=== PATIENT | male | born 1965 | race African-American/Black ===

== ENCOUNTER → 2017-06-13 | Outpatient (CLI) | payer OTHER ==
[~2017-06-13] MED LIST: AMITRYPTYLINE PO; ASPIRIN EC81 M1 PO; C-10001000 M1 PO; CETIRIZINE HCL10 MG PO; CLARITIN10 M3 PO; CYCLOBENZAPRINE5 MG PO; DESYREL50 M1 PO; GABAPENTIN300 M2 PO; GINSENG100 M1 PO; HYDROCHLOROTHIA25 MG PO; HYDROCODON-ACE1 EAC5 PO; KEPPRA500 MG PO; LISINOPRIL10 MG PO; METFORMIN PO; METOPROLOL TAR25 MG PO; NORVASC2.5 MG PO; OMEPRAZOLE20 M2 PO; PANTOPRAZOLE SO40 MG PO; PRAVASTATIN SOD20 MG PO; TERBINAFINE (L250 MG PO
--- NOTE | ~2017-06-13 | TH ---
Unit #: [id number] #: [id number] Patient: SARA JAIN [id number] [address] [address] [id number] O MR#: [id number] NAME: SARA JAIN. : 1965 SEX: M STUDY DATE/TIME: 06/13/2017 UNIT: [facility] ROOM: STUDY DESCRIPTION: Lexiscan stress test - Nuclear Attending Physician: Melvina Knox M.D. Referring Physician: Melvina Knox M.D. Primary Care Physician: Alex Persaud Jr., A.P.R.N. CARDIOLOGY REPORT PROCEDURE PERFORMED Lexiscan Cardiolite stress test - Nuclear portion. PROCEDURE Using technetium 99m-labeled Cardiolite, rest and stress SPECT images were obtained. Multiple SPECT images were obtained in various views, including horizontal and vertical long axis and short axis views of the left ventricle. Images were obtained by gated SPECT method. The patient was administered 10.26 mCi of Cardiolite at rest. The patient was administered 34.3 mCi of Cardiolite after Lexiscan infusion was completed. On the stress images, there is normal perfusion noted. The rest images show normal perfusion. Comparing the rest and stress images, there is no stress-induced ischemia noted. The left ventricular ejection fraction is calculated to be 44%. There is no focal wall motion abnormality seen. The left ventricular cavity is mildly dilated both at rest and post stress. CONCLUSION 1. No obvious stress-induced ischemia noted. 2. The left ventricular ejection fraction is calculated to be 44%. 3. There is mild global hypokinesis seen. 4. The left ventricular cavity is mildly dilated both at rest and post stress. 5. Suspicion for mild nonischemic dilated cardiomyopathy. Dictated by... Yenni Hall/harjeet TD: 06/13/2017 16:16 JOB #: [id number] Unit #: [id number] #: [id number] Patient: SARA JAIN CARDIOLOGY REPORT Page 1 of 1 X Melvina Knox MD <ELECTRONICALLY SIGNED> 07/31/17 1524 CARDIOLOGY REPORT
--- NOTE | ~2017-06-13 | ST ---
Unit #: [id number] #: [id number] Patient: SARA JAIN [id number] [place], [place] [address] [id number] O MR#: [id number] NAME: SARA JAIN. : 1965 SEX: M STUDY DATE/TIME: 06/13/2017 UNIT: [facility] ROOM: STUDY DESCRIPTION: Cardiac stress test. Attending Physician: Melvina Knox M.D. Referring Physician: Melvina Knox M.D. Primary Care Physician: Alex Persaud Jr., Kelly CARDIOLOGY REPORT EXAM Lexiscan Cardiolite stress test. PROCEDURE Baseline EKG normal sinus rhythm with a ventricular rate 88 beats per minute, left atrial abnormality, slightly prolonged QT. Lexiscan is a 4 minutes test with Lexiscan being injected within the first minute followed by Cardiolite. EKG during the test was equivocal to baseline. No acute ischemic changes. The patient had no complaints of chest pain, palpitations or dizziness. Had increased shortness of breath and some nausea and weakness that resolved in recovery phase. Maximum heart rate response was 121 beats per minute, with maximum blood pressure response of 152/112 mmHg. It was noted that the patient's blood pressure diastolic stayed high through the test. The patient states he did not take his medication this morning. He was encouraged to take his blood pressure medication as soon as possible after the test. The patient states he has them with him. Cardiolite was injected after Lexiscan within the first minute of the test. Radionuclide test pending. Please correlate with nuclear images. Dictated by... Erna Mullins A.P.R.N. for Yenni Hall/renu TD: 06/13/2017 10:31 JOB #: [id number] CC: Alex Persaud Jr., A.P.R.N. [facility] Unit #: [id number] #: [id number] Patient: SARA JAIN CARDIOLOGY REPORT Page 1 of 1 X Erna Mullins APRN CARDIOLOGY REPORT
== END | disposition home or self-care (01) ==
LOC: CNUC 06-02 07:00
DX: R07.9 Chest pain, unspecified (principal); R53.83 Other fatigue; R00.0 Tachycardia, unspecified; I51.7 Cardiomegaly
CPT/HCPCS: 78452; 93017; A9500; J2785